=== PATIENT | female | born 1960 | race African-American/Black ===

== ENCOUNTER 2017-03-01 10:04 | Emergency (ER) | payer SELFPAY ==
[~2017-03-01] VITALS: Ht 160 cm; Wt 70.8 kg
--- NOTE | 2017-03-01 10:35 | EKG ---
[facility] [address] [place] [address] Test Date: 2017-03-01 Test Time: 10:15:14 Pat Name: FROY GOMEZ Department: Room: Gender: F Ged Teacher: : [id number] Requested By: BARBARA DAVIDSON Order Number: [id number] Reading MD: Measurements Intervals [place] Rate: 60 P: 49 OR: 172 QRS: 41 QRSD: 78 T: 16 QT: 408 QTc: 408 Interpretive Statements SINUS RHYTHM NORMAL ECG RI6.01 No previous ECG available for comparison
[2017-03-01] MEDS ORDERED: LITH450T PO (10:38)
[2017-03-01] MEDS ORDERED: ALPR2TAB5 PO (10:39)
[2017-03-01] MEDS ORDERED: DIAZEPAM10 MG PO (10:41)
[2017-03-01 10:45] LABS: BASO # 0.1 x10^3/uL (0.0-0.2); BASO % 1 % (0-3); EOS % 3 % (0-3); HEMATOCRIT 39.4 % (36.0-47.0); HEMOGLOBIN 13.5 g/dL (12.0-15.5); LYMPH # 2.8 x10^3/uL (1.0-4.8); LYMPH % 45 % (24-48); MEAN CORPUSCULAR HEMOGLOBIN 34 pg (25-35); MEAN CORPUSCULAR HGB CONC 34 g/dL (31-37); MEAN CORPUSCULAR VOLUME 100 fL (79-100); MONO % 6 % (0-9); NEUT % 46 % (31-73); PLATELET COUNT 355 x10^3/uL (140-400); RED BLOOD COUNT 3.94 x10^6/uL (3.50-5.40); RED CELL DISTRIBUTION WIDTH 13.9 % (11.5-14.5); WHITE BLOOD COUNT 6.3 x10^3/uL (4.0-11.0)
[2017-03-01 10:52] LABS: CALCIUM 9.9 mg/dL (8.5-10.1); CREATININE 0.9 mg/dL (0.6-1.0); LI 0.7 mmol/L (0.6-1.2); POTASSIUM 4.3 mmol/L (3.5-5.1)
--- NOTE | 2017-03-01 10:55 | ED.ADGEN ---
Past Medical History Past Medical History: Depression, Hypertension Past Surgical History: Hysterectomy Alcohol Use: None Drug Use: Marijuana Adult General Chief Complaint Chief Complaint: DIZZY/LIGHT HEADED [facility] HPI Patient is a 56 year old female with history of hypertension, bipolar, and chronic anxiety presents with dizziness described as lightheadedness and feeling off balance for the past 3 week. Patient denies headache, focal weakness or leaning to one side. She attributes symptoms to forgetting to take her blood pressure medication routinely and that her blood pressure at home and is frequently above 200/100. She denies headache, blurred vision, chest pain, shortness of breath, leg swelling, extremity weakness or loss of sensation. No Abdominal pain, nausea vomiting, urinary frequency urgency. Patient receives her care at [facility]. She has not been evaluated for her concerns prior to today. She denies any other acute symptoms or complaints. Review of Systems Review of Systems ROS as per HPI. Current Medications Current Medications Current Medications Medications (Trade) Dose Ordered Sig/Pamela Start Time Stop Time Status Last Admin Dose Admin Acetaminophen/ Hydrocodone Bitart (Lortab 5/325) 1 tab 1X ONCE 03/01/17 11:30 03/01/17 11:31 DC 03/01/17 11:51 1 TAB Allergies Allergies Allergies Coded Allergies Type Severity Reaction Last Updated Verified No Known Drug Allergies 11/28/13 No Physical Exam Physical Exam Constitutional: Well developed, well nourished, no acute distress, non-toxic appearance. HENT: Normocephalic, atraumatic, bilateral external ears normal, oropharynx moist, no oral exudates, nose normal. Eyes: PERRL, EOMI, conjunctiva normal. Neck: Normal range of motion, no tenderness. Cardiovascular:Heart rate regular rhythm, no murmur. Lungs & Thorax: Bilateral breath sounds clear to auscultation. Abdomen: Bowel sounds normal, soft, no tenderness. Skin: Warm, dry. Back: No tenderness. Extremities: No tenderness. Neurologic: Alert and oriented X 3, cranial nerves II through XII grossly intact , normal motor function, normal sensory function, no focal deficits noted. Normal [id number], ownw-ju-[id number], steady gait. Psychologic: Affect, anxious. Current Patient Data Vital Signs Vital Signs Date Time Temp Pulse Resp B/P (MAP) Pulse Ox O2 Delivery O2 Flow Rate FiO2 03/01/17 11:21 58 20 124/80 (95) 99 Room Air 03/01/17 10:08 97.7 97.7 Lab Values Laboratory Tests Test 03/01/17 10:20 White Blood Count 6.3 x10^3/uL (4.0-11.0) Red Blood Count 3.94 x10^6/uL (3.50-5.40) Hemoglobin 13.5 g/dL (12.0-15.5) Hematocrit 39.4 % (36.0-47.0) Mean Corpuscular Volume 100 fL (79-100) Mean Corpuscular Hemoglobin 34 pg (25-35) Mean Corpuscular Hemoglobin Concent 34 g/dL (31-37) Red Cell Distribution Width 13.9 % (11.5-14.5) Platelet Count 355 x10^3/uL (140-400) Neutrophils (%) (Auto) 46 % (31-73) Lymphocytes (%) (Auto) 45 % (24-48) Monocytes (%) (Auto) 6 % (0-9) Eosinophils (%) (Auto) 3 % (0-3) Basophils (%) (Auto) 1 % (0-3) Neutrophils # (Auto) 2.9 x10^3uL (1.8-7.7) Lymphocytes # (Auto) 2.8 x10^3/uL (1.0-4.8) Monocytes # (Auto) 0.4 x10^3/uL (0.0-1.1) Eosinophils # (Auto) 0.2 x10^3/uL (0.0-0.7) Basophils # (Auto) 0.1 x10^3/uL (0.0-0.2) Sodium Level 138 mmol/L (136-145) Potassium Level 4.3 mmol/L (3.5-5.1) Chloride Level 102 mmol/L (98-107) Carbon Dioxide Level 28 mmol/L (21-32) Anion Gap 8 (6-14) Blood Urea Nitrogen 13 mg/dL (7-20) Creatinine 0.9 mg/dL (0.6-1.0) Estimated GFR (Cockcroft-Gault) 79.0 BUN/Creatinine Ratio 14 (6-20) Glucose Level 93 mg/dL (70-99) Calcium Level 9.9 mg/dL (8.5-10.1) Total Bilirubin 0.1 mg/dL (0.2-1.0) L Aspartate Amino Transferase (AST) 13 U/L (15-37) L Alanine Aminotransferase (ALT) 6 U/L (14-59) L Alkaline Phosphatase 88 U/L (46-116) Troponin I Quantitative < 0.017 ng/mL (0.000-0.055) Total Protein 7.2 g/dL (6.4-8.2) Albumin 4.0 g/dL (3.4-5.0) Albumin/Globulin Ratio 1.3 (1.0-1.7) [place] Level 0.7 mmol/L (0.6-1.2) [place] Last Dose Date Unknown [place] Last Dose Time Unknown Laboratory Tests 03/01/17 10:20 Laboratory Tests 03/01/17 10:20 EKG EKG [EKG: Normal sinus rhythm, rate 60, no acute ST-T wave changes.] Radiology/Procedures Radiology/Procedures [CT head: No acute disease per radiology report.] Course & Med Decision Making Course & Med Decision Making Pertinent Labs and Imaging studies reviewed. (See chart for details) [Patient with dizziness, normal vital signs, normal labs, negative orthostatic blood pressure. CT head is negative. Patient does not have any focal neurologic deficits on exam and stance are steady gait. Will defer further management to patient's primary care physician. She is struck to follow-up with her PCP in the next 3 days. Return precautions reviewed. Dragon Disclaimer Dragon Disclaimer This electronic medical record was generated, in whole or in part, using a voice recognition dictation system. BARBARA DAVIDSON DO Mar 01, 2017 10:55
[2017-03-01 10:58] LABS: ALBUMIN/GLOBULIN RATIO 1.3 (1.0-1.7); TOTAL BILIRUBIN 0.1 mg/dL (0.2-1.0); TOTAL PROTEIN 7.2 g/dL (6.4-8.2)
[2017-03-01] MEDS ORDERED: HYDROcodone/APAP 5/325MG 1 TAB TABLET PO ONE (11:30)
--- NOTE | 2017-03-01 11:31 | RAD ---
CT of the head without contrast, 03/01/2017: History: Dizziness and lightheadedness Comparison is made to a study from 09/13/2003. The ventricles are within normal limits in size. There is no shift of the midline structures. There is no evidence of acute intracranial hemorrhage or mass effect. IMPRESSION: No acute intracranial abnormality is detected. PQRS Compliance Statement: One or more of the following individualized dose reduction techniques were utilized for this examination: 1. Automated exposure control 2. Adjustment of the mA and/or kV according to patient size 3. Use of iterative reconstruction technique
[2017-03-01 12:18] VITALS: BP 116/71
== END 2017-03-01 12:32 | disposition home or self-care (01) ==
LOC: ER 10:04
DX: R42 Dizziness and giddiness (principal); I10 Essential (primary) hypertension; F12.10 Cannabis abuse, uncomplicated; F31.9 Bipolar disorder, unspecified; F41.9 Anxiety disorder, unspecified; Z90.710 Acquired absence of both cervix and uterus
CPT/HCPCS: 36415; 70450; 80053; 80178; 84484; 85027; 93005; 99285-25

== ENCOUNTER 2017-08-24 03:59 | Emergency (ER) | payer SELFPAY ==
[2017-08-24 05:27] LABS: AMPHETAMINE/METHAMPHETAMINE NEG (NEG); BARBITURATES NEG (NEG); BENZODIAZEPINES POS (NEG); CANNABINOIDS POS (NEG); COCAINE NEG (NEG); ETHANOL, URINE NEG (NEG); METHADONE NEG (NEG); OPIATES NEG (NEG); PHENCYCLIDINE NEG (NEG)
[2017-08-24 06:01] LABS: ADD MAN DIFF? NO
[2017-08-24 06:08] LABS: BASO % 1 % (0-3); EOS # 0.1 x10^3/uL (0.0-0.7); EOS % 1 % (0-3); HEMATOCRIT 39.8 % (36.0-47.0); LYMPH # 1.9 x10^3/uL (1.0-4.8); LYMPH % 22 % (24-48); MEAN CORPUSCULAR HEMOGLOBIN 34 pg (25-35); MEAN CORPUSCULAR HGB CONC 33 g/dL (31-37); MEAN CORPUSCULAR VOLUME 104 fL (79-100); MONO # 0.5 x10^3/uL (0.0-1.1); MONO % 6 % (0-9); NEUT # 5.9 x10^3uL (1.8-7.7); NEUT % 70 % (31-73); PLATELET COUNT 344 x10^3/uL (140-400); RED BLOOD COUNT 3.83 x10^6/uL (3.50-5.40); RED CELL DISTRIBUTION WIDTH 13.3 % (11.5-14.5); WHITE BLOOD COUNT 8.5 x10^3/uL (4.0-11.0)
[2017-08-24 06:15] LABS: ANION GAP 9 (6-14); BLOOD UREA NITROGEN 18 mg/dL (7-20); BUN/CREATININE RATIO 18 (6-20); CALCIUM 10.5 mg/dL (8.5-10.1); CARBON DIOXIDE 28 mmol/L (21-32); CHLORIDE 102 mmol/L (98-107); GFR 69.7; GLUCOSE 93 mg/dL (70-99); POTASSIUM 3.4 mmol/L (3.5-5.1); SODIUM 139 mmol/L (136-145)
[2017-08-24 06:21] LABS: ALBUMIN 4.4 g/dL (3.4-5.0); ALBUMIN/GLOBULIN RATIO 1.3 (1.0-1.7); ALK PHOS 80 U/L (46-116); ALT (SGPT) 6 U/L (14-59); AST (SGOT) 12 U/L (15-37); MAGNESIUM 2.2 mg/dL (1.8-2.4); TOTAL BILIRUBIN 0.3 mg/dL (0.2-1.0); TOTAL PROTEIN 7.8 g/dL (6.4-8.2)
[2017-08-24 06:24] LABS: TROPONINI < 0.017 ng/mL (0.000-0.055)
[2017-08-24 06:28] LABS: THYROID STIM HORMONE (TSH) 1.146 uIU/mL (0.358-3.74)
[2017-08-24] MEDS: levETIRAcetam 500 MG TABLET PO (07:18)
== END 2017-08-24 07:27 | disposition home or self-care (01) ==
LOC: ER 03:59
DX: R56.9 Unspecified convulsions (principal); I10 Essential (primary) hypertension; F41.9 Anxiety disorder, unspecified; F32.9 Major depressive disorder, single episode, unspecified
CPT/HCPCS: 36415; 70450; 80053; 80307; 83735; 84443; 84484; 85025; 93005; 99285-25